=== PATIENT | male | born 1955 | race Caucasian/White ===

== ENCOUNTER 2020-08-26 19:18 | Inpatient (IN) | payer MEDICARE, OTHER ==
[~2020-08-26] VITALS: Ht 170.2 cm; Wt 108.7 kg
[2020-08-26 19:40] LABS: ABG BASE EXCESS -9.3 mmol/L (-2.0-3.0); ABG CARBOXYHEMOGLOBIN 0.1 % (0.0-1.5); ABG METHEMOGLOBIN 0.2 % (0.0-1.5); ABG OXYGEN CONTENT 12.6 mL/dL (15.0-23.0); ABG OXYGEN SATURATION 99.2 % (95.0-98.0); ABG OXYHEMOGLOBIN 98.9 % (94.0-100.0); ABG PCO2 21 mmHg (35-45); ABG PH 7.462 (7.35-7.450); ABG TOTAL HEMOGLOBIN 8.7 G/dL (12.0-18.0); O2 DEVICE,BLOOD GAS NON REBREATHER (ROOM AIR); PO2, ARTERIAL BG 212.2 mmHg (79.0-87.0); SITE, BLOOD GAS RT RADIAL; SOURCE, BLOOD GAS ARTERIAL; TEMPERATURE, FAHRENHEIT, BG 98.6 FAHREN (96.0-98.6)
[2020-08-26] MEDS ORDERED: DEXAMETHASONE SOD PHOS 4 MG/ML VIAL IVP ONE (20:00)
[2020-08-26] MEDS ORDERED: SODIUM CHLORIDE 0.9% 2,200 ML IV ONE (20:15)
[2020-08-26] MEDS ORDERED: VANCOMYCIN HCL 1 GM/D5% WATER 200 ML IV ONE (20:15)
[2020-08-26] MEDS ORDERED: PIPERACILLIN/TAZO 3.375 GM/D5W 50 ML IV ONE (20:15)
[2020-08-26 20:38] LABS: GLUCOSE,POINT OF CARE 170 MG/DL (70-110)
[2020-08-26 21:27] LABS: MEAN CORPUSCULAR HEMOGLOBIN 26.9 pg (26.0-34.0); MEAN CORPUSCULAR HGB CONC 31.7 G/dL (31.0-37.0); MEAN CORPUSCULAR VOLUME 85 fL (80-100); RED BLOOD CELL COUNT(AUTO) 2.14 MIL/uL (4.50-5.90); RED CELL DISTRIBUTION WIDTH 20.9 % (11.5-14.5)
[2020-08-26 21:29] LABS: HEMATOCRIT 18.2 % (41-53); HEMOGLOBIN 5.8 g/dL (13.5-17.5)
[2020-08-26 21:32] LABS: ANION GAP 14 mmol/L (8-16); CARBON DIOXIDE 17 mmol/L (22-29); CHLORIDE 101 mmol/L (98-107); CREATININE 2.17 mg/dL (0.60-1.30); GLOMERULAR FILTR. RATE CALC 31 mL/min (>60); GLUCOSE,RANDOM 192 mg/dL (70-110); POTASSIUM 4.8 mmol/L (3.5-5.1); SODIUM SERUM 132 mmol/L (136-145); UREA NITROGEN, BLOOD 64 mg/dL (7-18)
[2020-08-26 21:42] LABS: D-DIMER 4.78 mg/L FEU (0.00-0.50); INR 1.3 (0.9-1.1)
[2020-08-26 21:45] LABS: CALCIUM, TOTAL 5.3 mg/dL (8.8-10.5)
[2020-08-26 22:00] LABS: APPEARANCE,URINE TURBID (CLEAR); GLUCOSE, URINE (UA) NEGATIVE (NEGATIVE); KETONES,URINE 40 mg/dL (NEGATIVE); LEUKOCYTE ESTERASE ,URINE LARGE (NEGATIVE); NITRATE,URINE POSITIVE (NEGATIVE); OCCULT BLOOD,URINE LARGE (NEGATIVE); PROTEIN,URINE SEE CONFIRM (NEGATIVE)
[2020-08-26] MEDS ORDERED: ACETAMINOPHEN 325 MG TABLET PO PRN (22:00)
[2020-08-26] MEDS ORDERED: ONDANSETRON HCL 4 MG/2 ML VIAL IVP PRN (22:00)
[2020-08-26 22:01] LABS: PLATELET COUNT (AUTO) 30 K/uL (150-450)
[2020-08-26 22:03] LABS: BILIRUBIN,URINE PRELIM. POSITIVE (NEGATIVE)
[2020-08-26 22:04] LABS: BAND NEUTROPHILS % (MANUAL) 22 % (0-5); CORRECTED WHITE BLOOD COUNT 3.7 K/uL (4.5-11.0); LYMPHOCYTES % (MANUAL) 11 % (22-44); METAMYELOCYTES % 1 % (0-0); MONOCYTES % (MANUAL) 8 % (2-9); SEGMENTED NEUTROPHILS % 58 % (40-70)
[2020-08-26 22:11] LABS: SULFOSALICYLIC ACID,URINE 4+ (Negative)
[2020-08-26 22:12] LABS: LACTIC ACID 3.9 mmol/L (0.4-2.0)
[2020-08-26 22:15] LABS: ALANINE AMINOTRANSFERASE 13 U/L (12-78); ALBUMIN 1.5 g/dL (3.4-5.0); ALKALINE PHOSPHATASE 757 U/L (46-116); ASPARTATE AMINOTRANSFERASE 66 U/L (15-37); CREATINE KINASE, TOTAL ONLY 108 U/L (39-308); FERRITIN 5311 ng/mL (26-388); LACTATE DEHYDROGENASE 1450 U/L (85-227); TOTAL PROTEIN, SERUM 6.3 g/dL (6.4-8.2)
[2020-08-26 22:18] LABS: BACTERIA,URINE Moderate /HPF (None Seen); RBC,URINE Full Field /HPF (0-2); SQUAMOUS EPITHELIAL CELL,UR Few /LPF (None Seen)
[2020-08-26 22:19] LABS: WBC,URINE 26-50 /HPF (0-5)
[2020-08-26] MEDS ORDERED: PANTOPRAZOLE SODIUM 40 MG/VIAL IVP ONE (22:45)
[2020-08-26] MEDS ORDERED: SODIUM CHLORIDE 0.9% 500 ML IV ONE (22:57)
[2020-08-26] MEDS ORDERED: CALCIUM GLUCONATE 1,000 MG in DEXTROSE 5%-WATER 50 ML IV ONE (23:10)
[2020-08-26] MEDS: SODIUM CHLORIDE 0.45% 1,000 ML IV SCH (23:24)
[2020-08-26 23:35] VITALS: BP 100/63
[2020-08-26 23:50] VITALS: BP 110/57
[2020-08-27] VITALS (18 sets, daily range): BP systolic 102–127; BP diastolic 59–72
[2020-08-27 00:10] LABS: COVID AG,FIA SOURCE NASOPHARYNGEAL
[2020-08-27 03:37] LABS: HEMOGLOBIN 6.7 g/dL (13.5-17.5)
[2020-08-27] MEDS ORDERED: SODIUM CHLORIDE 0.9% 500 ML IV ONE (05:27)
[2020-08-27 07:28] LABS: GLUCOMETER DEV NAME(LOC) 5S.1; GLUCOSE,POINT OF CARE 267 MG/DL (70-110)
[2020-08-27] MEDS: PANTOPRAZOLE SODIUM 40 MG/VIAL IVP SCH ×2 (10:13→21:39)
[2020-08-27] MEDS ORDERED: DEXTROSE 50%-WATER 25 GM/50 ML SYRINGE IVP PRN (10:45)
[2020-08-27] MEDS: PIPERACILLIN/TAZO 3.375 GM/D5W 50 ML IV SCH ×3 (12:27→22:25)
[2020-08-27] MEDS: INSULIN LISPRO 100 UNITS/ML SQ PRN ×3 (12:48→21:37)
[2020-08-27 13:16] LABS: HEMATOCRIT 23.1 % (41-53); HEMOGLOBIN 7.5 g/dL (13.5-17.5)
[2020-08-27] MEDS: SODIUM CHLORIDE 0.45% 1,000 ML IV SCH (17:10)
[2020-08-27 22:43] LABS: GLUCOMETER DEV NAME(LOC) 5S.1; GLUCOSE,POINT OF CARE 254 MG/DL (70-110)
[2020-08-27 22:44] LABS: GLUCOMETER DEV NAME(LOC) 5N.1B; GLUCOSE,POINT OF CARE 233 MG/DL (70-110)
[2020-08-27 22:44] LABS: GLUCOMETER DEV NAME(LOC) 5N.1B; GLUCOSE,POINT OF CARE 303 MG/DL (70-110)
[2020-08-28 01:03] VITALS: BP 107/68
[2020-08-28 04:32] VITALS: BP 113/68
[2020-08-28] MEDS: PIPERACILLIN/TAZO 3.375 GM/D5W 50 ML IV SCH (05:55)
[2020-08-28] MEDS: INSULIN LISPRO 100 UNITS/ML SQ PRN (06:21)
[2020-08-28 08:27] VITALS: BP 113/65
[2020-08-28 08:29] LABS: GLUCOMETER DEV NAME(LOC) 5S.1; GLUCOSE,POINT OF CARE 249 MG/DL (70-110)
[2020-08-28] MEDS ORDERED: MICONAZOLE NITRATE 2% 142 GM CREAM [BAZA] TP SCH (09:00)
[2020-08-28] MEDS: PANTOPRAZOLE SODIUM 40 MG/VIAL IVP SCH (09:09)
== END 2020-08-28 11:15 | disposition hospice, home (50) | DRG 871 ==
LOC: EMS 19:18 → 5N 21:54
PROVIDERS: ADMIT Internal Medicine; ATTEND Internal Medicine
PROC: 30233N1 Transfusion of Nonautologous Red Blood Cells into Peripheral Vein, Percutaneous Approach (ICD-10-PCS; principal; 2020-08-26)
DX: A41.9 Sepsis, unspecified organism (principal); U07.1 COVID-19; J96.01 Acute respiratory failure with hypoxia; G92 Toxic encephalopathy; D62 Acute posthemorrhagic anemia; E87.1 Hypo-osmolality and hyponatremia; E87.4 Mixed disorder of acid-base balance; N39.0 Urinary tract infection, site not specified; N17.9 Acute kidney failure, unspecified; I48.91 Unspecified atrial fibrillation; Z66 Do not resuscitate; E11.65 Type 2 diabetes mellitus with hyperglycemia; R31.9 Hematuria, unspecified; L89.619 Pressure ulcer of right heel, unspecified stage; L89.159 Pressure ulcer of sacral region, unspecified stage; D63.8 Anemia in other chronic diseases classified elsewhere; E66.01 Morbid (severe) obesity due to excess calories; Z85.46 Personal history of malignant neoplasm of prostate; Z79.01 Long term (current) use of anticoagulants; Z79.4 Long term (current) use of insulin
CPT/HCPCS: 36430; 36600; 76700; 82270; 82271; 82728; 82805; 82948; 83605; 83615; 83735; 84443; 85014; 85018; 85379; 85651; 86850; 86900; 86901; 86923; 87040; 87081; 87086; 87426; 93005; 93970; 99291; C9113; J0610; J1100; J2543; J3370; J7040; J7060; P9016; 36415-L1; 36415-TC; 71045-TC; U0003